=== PATIENT | female | born 1970 ===

== ENCOUNTER 2018-04-18 15:00 | Emergency (ER) | payer BC ==
[2018-04-18] MEDS ORDERED: Ketorolac 60 MG/2 ML SDV IM ONE (15:24)
--- NOTE | 2018-04-18 16:24 | EDM.PDOC ---
ED HPI GENERAL MEDICAL PROBLEM - General Chief Complaint: Lower Extremity Injury/Pain Stated Complaint: LT KNEE HURTS Time Seen by Provider: 04/18/18 15:05 Source of Information: Reports: Patient History Limitations: Reports: No Limitations - History of Present Illness INITIAL COMMENTS - FREE TEXT/NARRATIVE: History of present illness: []Patient has had left knee pain for the past 2 weeks that has progressively worsened. With Dr. Noel who did an ultrasound and x-rays which were both negative. 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 Past medical history: As per history of present illness and as reviewed below otherwise noncontributory. Surgical history: As per history of present illness and as reviewed below otherwise noncontributory. Social history: No reported history of drug or alcohol abuse. Family history: As per history of present illness and as reviewed below otherwise noncontributory. Physical exam: General: Well developed, well nourished in NAD HEENT: Atraumatic, normocephalic, pupils reactive, negative for conjunctival pallor or scleral icterus, mucous membranes moist, throat clear, neck supple, nontender, trachea midline. Lungs: Clear to auscultation, breath sounds equal bilaterally, chest nontender. Heart: S1S2, regular, negative for clicks, rubs, or JVD. Abdomen: Soft, nondistended, nontender. Negative for masses or hepatosplenomegaly. Negative for costovertebral tenderness. Pelvis: Stable nontender. Genitourinary: Deferred. Rectal: Deferred. Extremities: Atraumatic, no obvious joint effusion severe pain on palpation diffusely but greater on the lateral portion of anemia patient does not tolerate movement of the joint on my exam, but can move it slowly herself. negative for cords or calf pain. Neurovascular unremarkable. Neuro: Awake, alert, oriented. Cranial nerves II through XII unremarkable. Cerebellum unremarkable. Motor and sensory unremarkable throughout. Exam nonfocal. Skin:warm and dry Diagnostics: None Therapeutics: Toradol, Norflex IM given with some improvement ED Course: Unremarkable Impression: Internal derangement left knee Prescriptions: [place], Norflex Zofran Plan: Ice knee 20 minutes at a time, take meds as directed and follow-up with Dr. Bautista on day the at 1:15 PM please be there to check in at 1:00PM. Definitive disposition and diagnosis as appropriate pending reevaluation and review of above. 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: - Infectious Disease History Infectious Disease History: Reports: Chicken Pox - Past Surgical History Musculoskeletal Surgical History: Reports: Carpal Tunnel Social & Family History - Family History Family Medical History: Noncontributory Cardiac: Reports: CAD, Hypertension Endocrine/Metabolic: Reports: Diabetes, type II Oncologic: Reports: Bladder, Breast - Tobacco Use Smoking Status *Q: Never Smoker Second Hand Smoke Exposure: No - Caffeine Use Caffeine Use: Reports: Coffee, Soda, Tea - Recreational Drug Use Recreational Drug Use: No Review of Systems - Review of Systems Review Of Systems: ROS reveals no pertinent complaints other than HPI. ED EXAM, GENERAL - Physical Exam Exam: See Below (See history of present illness) Course - Vital Signs Last Recorded V/S: Last Vital Signs Temp 98.5 F 04/18/18 15:18 Pulse 101 H 04/18/18 15:18 Resp 18 04/18/18 15:18 BP 163/100 H 04/18/18 15:18 Pulse Ox 100 04/18/18 15:18 - Orders/Labs/Meds Orders: Active Orders 24 hr Category Date Time Status Orphenadrine [Norflex] Med 04/18/18 16:00 Active 60 mg IM Q12H Medication Orders Orphenadrine Citrate (Norflex) 60 mg IM Q12H CY Last Admin: 04/18/18 16:04 Dose: 60 mg Meds: Medications Generic Name Dose Route Start Last Admin Trade Name Freq PRN Reason Stop Dose Admin Orphenadrine Citrate 60 mg 04/18/18 16:00 04/18/18 16:04 Norflex IM 60 mg Q12H CY Administration Discontinued Medications Generic Name Dose Route Start Last Admin Trade Name Freq PRN Reason Stop Dose Admin Ketorolac Tromethamine 60 mg 04/18/18 15:24 04/18/18 15:33 Toradol IM 04/18/18 15:25 60 mg ONETIME ONE Administration Departure - Departure Time of Disposition: 16:31 Disposition: Home, Self-Care 01 Condition: Good Clinical Impression: Internal derangement of knee Qualifiers: Laterality: left Qualified Code(s): M23.92 - Unspecified internal derangement of left knee - Discharge Information *PRESCRIPTION DRUG MONITORING PROGRAM REVIEWED*: No *COPY OF PRESCRIPTION DRUG MONITORING REPORT IN PATIENT CONSUELO: No Prescriptions: Ondansetron HCl [Zofran] 4 mg PO Q4HR #12 tablet Acetaminophen/HYDROcodone [[place] 325-10 MG] 1 tab PO Q6H PRN #20 tablet PRN Reason: Pain Orphenadrine [Norflex] 100 mg PO BID PRN #16 tab PRN Reason: Pain Referrals: PCP,None [Primary Care Provider] - Forms: ED Department Discharge Additional Instructions: The following information is given to patients seen in the emergency department who are being discharged to home. This information is to outline your options for follow-up care. We provide all patients seen in our emergency department with a follow-up referral. The need for follow-up, as well as the timing and circumstances, are variable depending upon the specifics of your emergency department visit. If you don't have a primary care physician on staff, we will provide you with a referral. We always advise you to contact your personal physician following an emergency department visit to inform them of the circumstance of the visit and for follow-up with them and/or the need for any referrals to a consulting specialist. The emergency department will also refer you to a specialist when appropriate. This referral assures that you have the opportunity for follow-up care with a specialist. All of these measure are taken in an effort to provide you with optimal care, which includes your follow-up. Under all circumstances we always encourage you to contact your private physician who remains a resource for coordinating your care. When calling for follow-up care, please make the office aware that this follow-up is from your recent emergency room visit. If for any reason you are refused follow-up, please contact the [facility] Emergency Department at and asked to speak to the emergency department charge nurse. - My Orders Last 24 Hours: My Active Orders 04/18/18 16:00 Orphenadrine [Norflex] 60 mg IM Q12H - Assessment/Plan Last 24 Hours: My Active Orders 04/18/18 16:00 Orphenadrine [Norflex] 60 mg IM Q12H
== END 2018-04-18 17:07 | disposition home or self-care (01) ==
LOC: MW.ED 15:00
DX: M23.92 Unspecified internal derangement of left knee (principal); Z91.048 Other nonmedicinal substance allergy status; Z79.899 Other long term (current) drug therapy
CPT/HCPCS: 96372; 99283; J1885; J2360